=== PATIENT | male | born 1945 | race Caucasian/White ===

== ENCOUNTER 2021-02-02 10:40 | Emergency (ER) | payer MEDICARE ==
[~2021-02-02] VITALS: Ht 172.7 cm; Wt 75.3 kg
[2021-02-02] MEDS ORDERED: DIPH,PERTUSS(ACELL),TET VAC/PF 0.5 ML SYRINGE. VAX IM ONE (11:15)
--- NOTE | 2021-02-02 11:49 | PHYS DOC ---
Past Medical History Additional Past Medical Histor: prostate cancer, radiation induced proctitis Past Surgical History: Other Additional Past Surgical Histo: prostatectomy, flexible sigmoidoscopy Smoking Status: Never Smoker Alcohol Use: None General Adult EDM: Chief Complaint: MECHANICAL FALL HPI: HPI: Patient is a 75 year old male who presents with a fall earlier today. He was leaving the [facility] where he was attending an exercise class when he lost his balance when going down a curb. Denies any preceding dizziness, weakness, numbness, chest pain, shortness of breath, palpitations or other organic symptoms. States that he has chronically poor balance, and miss-stepped. He struck the left side of his head. No LOC, confusion, nausea/vomiting, or severe headache. He sustained skin abrasions to his left forehead, left wrist/forearm, left elbow. He also complains of left-sided lower back pain, but denies weakness in his arms or legs. Denies neck pain. No blood thinning medications. Review of Systems: Review of Systems: Constitutional: Denies fever or chills. [] Eyes: Denies change in visual acuity. [] HENT: Denies nasal congestion or sore throat. [] Respiratory: Denies cough or shortness of breath. [] Cardiovascular: Denies chest pain or edema. [] GI: Denies abdominal pain, nausea, vomiting, bloody stools or diarrhea. [] : Denies dysuria. [] Musculoskeletal: Denies back pain or joint pain. [] Integument: Denies rash. [] Neurologic: Denies headache, focal weakness or sensory changes. [] Endocrine: Denies polyuria or polydipsia. [] Lymphatic: Denies swollen glands. [] Psychiatric: Denies depression or anxiety. [] Heart Score: C/O Chest Pain: No Risk Factors: Risk Factors: DM, Current or recent (<one month) smoker, HTN, HLP, family history of CAD, obesity. Risk Scores: Score 0 - 3: 2.5% MACE over next 6 weeks - Discharge Home Score 4 - 6: 20.3% MACE over next 6 weeks - Admit for Clinical Observation Score 7 - 10: 72.7% MACE over next 6 weeks - Early Invasive Strategies Current Medications: Current Medications Medications (Trade) Dose Ordered Sig/Gato Start Time Stop Time Status Last Admin Dose Admin Diphtheria/ Tetanus/Acell Pertussis (ADACEL TDap SYRINGE) 0.5 ml ONCE ONCE 02/02/21 11:15 02/02/21 11:16 DC Allergies: Allergies: Allergies Coded Allergies Type Severity Reaction Last Updated Verified Penicillins Allergy Intermediate hives 02/02/21 Yes silver Allergy Intermediate tegaderm adhesive-blisters 02/02/21 Yes Physical Exam: PE: Constitutional: Well developed, well nourished, no acute distress, non-toxic appearance. [] HENT: Abrasion to the left forehead Eyes: PERRLA, EOMI, conjunctiva normal, no discharge. [] Neck: Normal range of motion, no tenderness, supple, no stridor. [] Cardiovascular:Heart rate regular rhythm, no murmur [] Lungs & Thorax: Bilateral breath sounds clear to auscultation [] Abdomen: Bowel sounds normal, soft, no tenderness, no masses, no pulsatile masses. [] Skin: Multiple skin tears to the left wrist, forearm, elbow. Back: No tenderness, no CVA tenderness. [] Extremities: No tenderness, no cyanosis, no clubbing, ROM intact, no edema. [] Neurologic: Alert and oriented X 3, normal motor function, normal sensory function, no focal deficits noted. [] Psychologic: Affect normal, judgement normal, mood normal. [] Current Patient Data: Vital Signs: Vital Signs Date Time Temp Pulse Resp B/P (MAP) Pulse Ox O2 Delivery O2 Flow Rate FiO2 02/02/21 10:53 97.5 77 20 115/64 (81) 93 Room Air 97.5 EKG: EKG: [] Radiology/Procedures: Radiology/Procedures: [] Impression: [facility] [address] [place], [place] [id number] IMAGING REPORT Signed PATIENT: SEBASTIAN JOHN ACCOUNT: [id number] : 1945 LOCATION: ER AGE: 75 SEX: M EXAM STATUS: REG ER ORD. PHYSICIAN: CK KUMAR MD REASON: fall, head strike PROCEDURE: CT HEAD AND CERVICAL SPINE WO EXAM: Head and cervical spine CT without contrast. HISTORY: Fall. TECHNIQUE: Computed tomographic images of the head and cervical spine were obtained without contrast. *One or more of the following individualized dose reduction techniques were ut ilized for this examination: 1. Automated exposure control. 2. Adjustment of the mA and/or kV according to patient size. 3. Use of iterative reconstruction technique. COMPARISON: None. FINDINGS: Head: There is no acute or subacute intracranial hemorrhage. There is cerebral atrophy with increased extra-axial space. There is decreased attenuation within the cerebral white matter, likely due to chronic small vessel disease. The orbits and visualized paranasal sinuses mastoid air cells are unremarkable. There is no suspicious calvarial lesion. Cervical spine: There is straightening of cervical lordosis. There is slight anterolisthesis of C2 on C3, chronic in appearance. There is severe endplate remodeling with bulky anterior osteophytes at the cervical levels. 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 There is partial fusion of the left C2-C3 facet joint. There is a prominent arachnoid granulation within the occiput. There is partially calcified pannus surrounding the dens. At C2-C3, there is a disc bulge and endplate remodeling. There is moderate right and severe left facet arthropathy. There is left uncovertebral arthropathy. There is severe left foraminal stenosis. At C3-C4, there is a disc bulge and endplate osteophytosis. There is mild right and moderate left facet arthropathy. There is left greater than right unc overtebral arthropathy. There is ossification of the posterior longitudinal ligament. There is severe bilateral foraminal stenosis. There is moderate central canal stenosis. At C4-C5, there is a disc bulge and endplate osteophytosis. There is ossification of the left paracentral posterior longitudinal ligament. There is mild right and moderate left facet arthropathy. There is right greater than left uncovertebral therapy. There is severe right foraminal stenosis. There is moderate to severe central canal stenosis. At C5-C6, there is a disc bulge and endplate osteophytosis. There is mild bilateral facet arthropathy. There is bilateral uncovertebral arthropathy. There is severe bilateral foraminal stenosis. There is moderate to severe central canal stenosis. At C7-T1, there is a right paracentral to lateral recess disc osteophyte complex superimposed on a disc bulge and endplate osteophytosis. There is mild bilateral facet arthropathy. There is bilateral uncovertebral arthropathy. There is moderate to severe bilateral foraminal stenosis. There is moderate to severe central canal stenosis. IMPRESSION: 1. No acute intracranial finding or evidence of acute cervical spine trauma. 2. Bilateral cerebral white matter changes, likely due to chronic small vessel disease. 3. Cerebral atrophy. 4. Multilevel degenerative change involving the cervical spine, described in detail above. This results in significant stenosis at multiple levels. 5. Bulky anterior osteophytes at the cervical levels likely due to diffuse idiopathic skeletal hyperostosis. There is also ossification of the posterior longitudinal ligament at the cervical levels. Electronically signed by: Juli Avalos MD (02/02/2021 12:01 PM) [id number] DICTATED and SIGNED BY: JULI AVALOS MD DATE: 02/02/21 [id number] [facility] [address] [place] [address] IMAGING REPORT Signed PATIENT: SEBASTIAN JOHN ACCOUNT: [id number] : 1945 LOCATION: ER AGE: 75 SEX: M EXAM STATUS: REG ER ORD. PHYSICIAN: CK KUMAR MD REASON: fall, head strike PROCEDURE: CT HEAD AND CERVICAL SPINE WO EXAM: Head and cervical spine CT without contrast. HISTORY: Fall. TECHNIQUE: Computed tomographic images of the head and cervical spine were obtained without contrast. *One or more of the following individualized dose reduction techniques were utilized for this examination: 1. Automated exposure control. 2. Adjustment of the mA and/or kV according to patient size. 3. Use of iterative reconstruction technique. COMPARISON: None. FINDINGS: Head: There is no acute or subacute intracranial hemorrhage. There is cerebral atrophy with increased extra-axial space. There is decreased attenuation within the cerebral white matter, likely due to chronic small vessel disease. The o rbits and visualized paranasal sinuses mastoid air cells are unremarkable. There is no suspicious calvarial lesion. Cervical spine: There is straightening of cervical lordosis. There is slight anterolisthesis of C2 on C3, chronic in appearance. There is severe endplate remodeling with bulky anterior osteophytes at the cervical levels. 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 There is partial fusion of the left C2-C3 facet joint. There is a prominent arachnoid granulation within the occiput. There is partially calcified pannus surrounding the dens. At C2-C3, there is a disc bulge and endplate remodeling. There is moderate right and severe left facet arthropathy. There is left uncovertebral arthropathy. There is severe left foraminal stenosis. At C3-C4, there is a disc bulge and endplate osteophytosis. There is mild right and moderate left facet arthropathy. There is left greater than right uncovertebral arthropathy. There is ossification of the posterior longitudinal ligament. There is severe bilateral foraminal stenosis. There is moderate central canal stenosis. At C4-C5, there is a disc bulge and endplate osteophytosis. There is ossification of the left paracentral posterior longitudinal ligament. There is mild right and moderate left facet arthropathy. There is right greater than left uncovertebral therapy. There is severe right foraminal stenosis. There is moderate to severe central canal stenosis. At C5-C6, there is a disc bulge and endplate osteophytosis. There is mild bilateral facet arthropathy. There is bilateral uncovertebral arthropathy. There is severe bilateral foraminal stenosis. There is moderate to severe central canal stenosis. At C7-T1, there is a right paracentral to lateral recess disc osteophyte complex superimposed on a disc bulge and endplate osteophytosis. There is mild bilateral facet arthropathy. There is bilateral uncovertebral arthropathy. There is moderate to severe bilateral foraminal stenosis. There is moderate to severe central canal stenosis. IMPRESSION: 1. No acute intracranial finding or evidence of acute cervical spine trauma. 2. Bilateral cerebral white matter changes, likely due to chronic small vessel disease. 3. Cerebral atrophy. 4. Multilevel degenerative change involving the cervical spine, described in detail above. This results in significant stenosis at multiple levels. 5. Bulky anterior osteophytes at the cervical levels likely due to diffuse idiopathic skeletal hyperostosis. There is also ossification of the posterior longitudinal ligament at the cervical levels. Electronically signed by: Juli Avalos MD (02/02/2021 12:01 PM) [id number] DICTATED and SIGNED BY: JULI AVALOS MD DATE: 02/02/21 [id number] 0 Course & Med Decision Making: Course & Med Decision Making Pertinent Labs and Imaging studies reviewed. (See chart for details) Patient is 75-year-old male who presents after mechanical fall. Multiple skin abrasions on his forehead and left arm. Do not require suturing. Does require updating tetanus. CT imaging of his head and neck are negative for acute injury. Lumbar spine also negative for acute injury. Does show known ascites and a chronic right- sided 11th rib fracture. He has no tenderness in this area to suggest an acute fracture. Feel he will be safe for discharge with local wound care for his skin tears/abrasions. Dragon Disclaimer: Dragon Disclaimer: This electronic medical record was generated, in whole or in part, using a voice recognition dictation system. Departure Departure Impression: Primary Impression: Skin tear Additional Impressions: Fall Forehead abrasion Ascites Disposition: 01 HOME / SELF CARE / HOMELESS Condition: STABLE Referrals: UNKNOWN PCP NAME (PCP) Additional Instructions: The CT scans of your head, neck, and lower back were negative for any new injuries. You have multiple skin tears, please use Neosporin/bacitracin or in a different antibiotic ointment on these regularly. Please keep the bandage until healing/scabbing begins to occur. Please change your bandaging at least once a day. Please follow-up with your primary care doctor to ensure that your wounds are healing well. CK KUMAR MD Feb 02, 2021 11:49
--- NOTE | 2021-02-02 12:03 | RAD ---
EXAM: Head and cervical spine CT without contrast. HISTORY: Fall. TECHNIQUE: Computed tomographic images of the head and cervical spine were obtained without contrast. *One or more of the following individualized dose reduction techniques were utilized for this examina tion: 1. Automated exposure control. 2. Adjustment of the mA and/or kV according to patient size. 3. Use of iterative reconstruction technique. COMPARISON: None. FINDINGS: Head: There is no acute or subacute intracranial hemorrhage. There is cerebral atrophy with increased extra-axial space. There is decreased attenuation within the cerebral white matter, likely due to ch ronic small vessel disease. The orbits and visualized paranasal sinuses mastoid air cells are unremar kable. There is no suspicious calvarial lesion. Cervical spine: There is straightening of cervical lordosis. There is slight anterolisthesis of C2 on C3, chronic in appearance. There is severe endplate remodeling with bulky anterior osteophytes at th e cervical levels. There is ossification of the posterior longitudinal ligament at the majority of th e cervical levels. There is partial fusion of the left C2-C3 facet joint. There is a prominent arachn oid granulation within the occiput. There is partially calcified pannus surrounding the dens. At C2-C3, there is a disc bulge and endplate remodeling. There is moderate right and severe left face t arthropathy. There is left uncovertebral arthropathy. There is severe left foraminal stenosis. At C3-C4, there is a disc bulge and endplate osteophytosis. There is mild right and moderate left fac et arthropathy. There is left greater than right uncovertebral arthropathy. There is ossification of the posterior longitudinal ligament. There is severe bilateral foraminal stenosis. There is moderate central canal stenosis. At C4-C5, there is a disc bulge and endplate osteophytosis. There is ossification of the left paracen tral posterior longitudinal ligament. There is mild right and moderate left facet arthropathy. There is right greater than left uncovertebral therapy. There is severe right foraminal stenosis. There is moderate to severe central canal stenosis. At C5-C6, there is a disc bulge and endplate osteophytosis. There is mild bilateral facet arthropathy . There is bilateral uncovertebral arthropathy. There is severe bilateral foraminal stenosis. There i s moderate to severe central canal stenosis. At C7-T1, there is a right paracentral to lateral recess disc osteophyte complex superimposed on a di sc bulge and endplate osteophytosis. There is mild bilateral facet arthropathy. There is bilateral un covertebral arthropathy. There is moderate to severe bilateral foraminal stenosis. There is moderate to severe central canal stenosis. IMPRESSION: 1. No acute intracranial finding or evidence of acute cervical spine trauma. 2. Bilateral cerebral white matter changes, likely due to chronic small vessel disease. 3. Cerebral atrophy. 4. Multilevel degenerative change involving the cervical spine, described in detail above. This resul ts in significant stenosis at multiple levels. 5. Bulky anterior osteophytes at the cervical levels likely due to diffuse idiopathic skeletal hypero stosis. There is also ossification of the posterior longitudinal ligament at the cervical levels. Electronically signed by: Juli Avalos MD (02/02/2021 12:01 PM) [id number]
--- NOTE | 2021-02-02 12:12 | RAD ---
CT of the lumbar spine without contrast INDICATION: Fall COMPARISON STUDY: None TECHNIQUE: CT imaging of the lumbar spine was performed without contrast FINDINGS: No evidence of acute fracture or alignment abnormality is identified. Vertebral body height s are maintained. There is severe degenerative change of the lumbar spine including posterior project ing disc osteophyte complex at all levels. There is also severe facet arthrosis throughout the lumbar spine. This results in multifocal spinal canal stenosis appears be most prominent at L2-L3 and L3 an d L3-L4. Multilevel neural foraminal narrowing is seen, essentially involving all levels which is mos t prominent on the right secondary to bulky facet disease and endplate disease at L4-L5 and L5-S1. Fr ee fluid is seen in the pelvis and in the bilateral upper abdomen density of which suggests simple as cites. What appears to be a healing or chronic rib fracture involving the medial aspect of the right 11th ri b is noted. IMPRESSION: 1. Severe degenerative changes of the lumbar spine without evidence of acute fracture or alignment ab normality. 2. Ascites 3.Subacute or chronic right 11th rib fracture Electronically signed by: Ulises Loyd MD (02/02/2021 12:09 PM) [id number]
[2021-02-02] MEDS ORDERED: ONDANSETRON ODT 4 MG TAB.RAPDIS. PO ONE (13:15)
[2021-02-02 13:44] VITALS: BP 104/67
== END 2021-02-02 14:10 | disposition home or self-care (01) ==
LOC: ER 10:40
DX: S61.512A Laceration without foreign body of left wrist, initial encounter (principal); S51.812A Laceration without foreign body of left forearm, initial encounter; S51.012A Laceration without foreign body of left elbow, initial encounter; S00.81XA Abrasion of other part of head, initial encounter; M54.59 Other low back pain; Z88.0 Allergy status to penicillin; Z88.8 Allergy status to other drugs, medicaments and biological substances; W18.39XA Other fall on same level, initial encounter; Y93.89 Activity, other specified; Y92.89 Other specified places as the place of occurrence of the external cause; Y99.8 Other external cause status
CPT/HCPCS: 70450; 72125; 72131; 90471; 90715; 99285-25